=== PATIENT | male | born 1960 | race Caucasian/White ===

== ENCOUNTER 2024-06-15 06:42 | Observation (INO) ==
[2024-06-15 07:18] LABS: Basophils # (auto) 0.03 K/uL (0.00-0.20); Basophils % (auto) 0.3 %; Eosinophils # (auto) 0.08 K/uL (0.00-0.50); Eosinophils % (auto) 0.9 %; Immature Granulocytes # (auto) 0.07 K/uL (0.01-0.20); Immature Granulocytes % (auto) 0.8 %; Lymphocytes # (auto) 1.38 K/uL (1.20-3.40); Lymphocytes % (auto) 15.6 %; Mean Corpuscular Hemoglobin 32.7 pg (25.0-34.0); Mean Corpuscular Hgb Conc 35.4 g/dL (32.0-36.0); Mean Corpuscular Volume 92.3 fL (80.0-100.0); Mean Platelet Volume 10.2 fL (9.4-12.4); Monocytes # (auto) 0.78 K/uL (0.11-0.59); Monocytes % (auto) 8.8 %; Neutrophils # (auto) 6.51 K/uL (1.40-6.50); Neutrophils % (auto) 73.6 %; Platelet Count 129 K/uL (130-400); RDW Standard Deviation 46.7 fL (36.4-46.3); White Blood Count 8.85 K/ul (4.8-10.8)
[2024-06-15 07:29] LABS: Albumin Globulin Ratio 1.8 (0.9-2); Albumin Level 4.2 gm/dl (3.4-5.0); BUN Creatinine Ratio 18.6 (10-20); Bilirubin,Total 1.4 mg/dl (0.2-1.0); Calcium 9.4 mg/dl (8.6-10.3); Creatinine Clr Calc Pharmacy 115.1 ml/min; Globulin 2.3 gm/dl (2.5-4.0); Potassium 4.4 mmol/L (3.5-5.1); Total Protein 6.5 gm/dl (6.0-8.3)
[2024-06-15 07:35] LABS: Troponin I High Sensitivity 9.4 pg/ml (0-20)
--- NOTE | 2024-06-15 07:55 | Emergency Department Note ---
Impression & Plan Chest pain, Cardiomyopathy, CAD (coronary artery disease) ED Provider Note NAME: RUPERT [id number] DANA AGE: 63 SEX: M : 1960 ARRIVES VIA: Walk-In INFORMANT: Patient, ED PROVIDER(S): Alivia Henriquez MD CHIEF COMPLAINT: Chest pain HPI: This is a 63-year-old male with history of CAD status post CABG/stenting/pacemaker presenting for chest pain. Patient notes that he became chest pain when he woke up. He was diaphoretic with central chest pain and feeling of pressure/squeezing sensation. He has had it was noted to like a 8/10 in severity, now down to a 4/10. He also feels similar to previous times he has had CABG/stenting done in the past. He did note slight associated shortness of breath. No fever, chills, nausea or vomiting. ROS: See above HPI for pertinent positives & negatives. A total of 10 systems reviewed and were otherwise negative. PAST MEDICAL HISTORY: See Below PAST SURGICAL HISTORY: See Below FAMILY HISTORY: See Below SOCIAL HISTORY: See Below HOME MEDICATIONS: See Below ALLERGIES: See Below VITALS: See Below PHYSICAL EXAMINATION: General: resting comfortably in no acute distress Head: Normocephalic and atraumatic Eyes: Normal inspection, extraocular muscles intact Ear, nose, throat: Normal external exam Neck: Normal range of motion Respiratory: lungs clear to auscultation bilaterally Cardiovascular: Regular rate/rhythm, no murmur GI: soft, nontender, no guarding or rebound Extremities: nontender, moves all extremities Neuro: The patient awake and alert, appropriately conversive, no focal deficits, symmetric faces Skin: Warm, dry, and intact MEDICAL DECISION MAKING: This is a 63-year-old male with history of CAD status post CABG/stenting/pacemaker presenting for chest pain. Clinically well at this time but did have symptoms concerning for cardiac chest pain. Will do screening workup to help elucidate with EKG, troponin, chest x-ray. -ECG independently interpreted by me with atrially sensed, ventricularly paced rhythm at a rate of 69, prolonged AV conduction, no acute ST segment elevation consistent with for STEMI -Chest x-ray read as negative by radiology -Bloodwork is reviewed showing no significant leukocytosis, anemia, electrolyte or creatinine abnormality -Troponin is currently negative. -With patient's previous history of ACS with similar symptoms, will admit for further cardiac workup per patient has a previous CABG and stents and is high cardiac risk at this time. -Discussed care with hospitalist service for admission Differential diagnosis:- ACS, PE, angina pneumonia, pneumothorax, treatment provided: See below Independent History obtained from: [facility] Diagnostics interpreted by me: ECG: See above Cardiac Monitoring: An order was placed for continuous cardiac monitoring. The monitor shows a rate of 65 with sinus rhythm. Laboratory studies: As stated above and show below. Imaging studies: See below. Past Med/Surg History Problem List (Updated 06/15/24 @ 14:57 by Alivia Henriquez MD) Type 2 diabetes mellitus Chest pain (Acute) NSVT (nonsustained ventricular tachycardia) Cardiomyopathy (Acute) CAD (coronary artery disease) (Acute) CASH (dyspnea on exertion) Loss of consciousness ICD (implantable cardioverter-defibrillator), biventricular, in situ Social History Smoking Status: Never smoker Preferred Language: Slovenian Feels Safe at Home: Yes Allergies Allergies Allergy/AdvReac Type Severity Reaction Status Date / Time atorvastatin Allergy Verified 04/20/24 11:52 metformin Allergy Verified 04/20/24 11:52 penicillin G benzathine Allergy Verified 04/20/24 11:52 Home Meds Home Medications Medication Instructions Recorded Confirmed albuterol sulfate 90 mcg/actuation 2 puff inhalation Q6H PRN 01/12/24 04/20/24 aerosol inhaler amitriptyline 100 mg tablet 100 mg PO DAILY 01/12/24 04/20/24 amitriptyline 50 mg tablet 50 mg PO DAILY 01/12/24 04/20/24 aspirin 81 mg tablet,delayed 81 mg PO DAILY 01/12/24 04/20/24 release carvedilol 6.25 mg tablet (Coreg) 6.25 mg PO BID 01/12/24 04/20/24 clopidogrel 75 mg tablet 75 mg PO DAILY 01/12/24 04/20/24 cyanocobalamin (vitamin B-12) 100 mcg IM MONTHLY 01/12/24 04/20/24 1,000 mcg/mL injection solution empagliflozin 10 mg tablet 10 mg PO DAILY 01/12/24 04/20/24 (Jardiance) insulin glargine-yfgn 100 unit/mL 10 unit subcut DAILY 01/12/24 04/20/24 (3 mL) subcutaneous pen (Semglee (insulin glargine-yfgn) Pen) isosorbide mononitrate 30 mg 30 mg PO DAILY 01/12/24 04/20/24 tablet,extended release 24 hr nitroglycerin 0.4 mg sublingual 0.4 mg sublingual Q5M PRN 01/12/24 04/20/24 tablet potassium chloride 10 mEq 10 meq PO DAILY 01/12/24 04/20/24 capsule,extended release sacubitril 24 mg-valsartan 26 mg 1 tab PO BID 01/12/24 04/20/24 tablet (Entresto) spironolactone 25 mg tablet 25 mg PO DAILY 01/12/24 04/20/24 amitriptyline 25 mg tablet 25 mg PO DAILY 04/20/24 04/20/24 pramoxine 1 % lotion (Sarna 1 applic topical BID 04/20/24 04/20/24 Sensitive) Results & Data (ED) Vital Signs Vital Signs - 24 hr 06/15/24 06:49 06/15/24 07:03 06/15/24 07:04 Temperature 36.6 C Temperature Source Temporal Artery Scan Pulse Rate 76 68 70 Pulse Rate from SpO2 Sensor 69 Respiratory Rate 18 13 Blood Pressure 108/69 Blood Pressure [Left Arm] Blood Pressure Mean 82 Blood Pressure Mean [Left Arm] Blood Pressure Position Sitting Pulse Oximetry 96 95 Oxygen Delivery Method Room Air Sepsis Recent Fever Within 48 Hours No Sepsis New/Unexplained Change in Mental Status N/A Sepsis Action Taken by Nursing No Action Required 06/15/24 07:24 06/15/24 07:31 06/15/24 07:31 Temperature Temperature Source Pulse Rate 67 Pulse Rate from SpO2 Sensor 68 Respiratory Rate 12 Blood Pressure Blood Pressure [Left Arm] Blood Pressure Mean Blood Pressure Mean [Left Arm] Blood Pressure Position Pulse Oximetry 93 Oxygen Delivery Method Room Air Room Air Sepsis Recent Fever Within 48 Hours Sepsis New/Unexplained Change in Mental Status Sepsis Action Taken by Nursing 06/15/24 07:33 06/15/24 07:45 06/15/24 07:57 Temperature Temperature Source Pulse Rate 66 70 69 Pulse Rate from SpO2 Sensor 66 70 66 Respiratory Rate 12 14 13 Blood Pressure Blood Pressure [Left Arm] Blood Pressure Mean Blood Pressure Mean [Left Arm] Blood Pressure Position Pulse Oximetry 93 96 97 Oxygen Delivery Method Sepsis Recent Fever Within 48 Hours Sepsis New/Unexplained Change in Mental Status Sepsis Action Taken by Nursing 06/15/24 08:00 06/15/24 08:12 06/15/24 08:42 Temperature Temperature Source Pulse Rate 68 70 63 Pulse Rate from SpO2 Sensor 67 69 63 Respiratory Rate 12 Blood Pressure Blood Pressure [Left Arm] Blood Pressure Mean Blood Pressure Mean [Left Arm] Blood Pressure Position Pulse Oximetry 96 95 95 Oxygen Delivery Method Sepsis Recent Fever Within 48 Hours Sepsis New/Unexplained Change in Mental Status Sepsis Action Taken by Nursing 06/15/24 09:09 06/15/24 09:18 06/15/24 09:18 Temperature Temperature Source Pulse Rate 71 68 Pulse Rate from SpO2 Sensor 71 69 Respiratory Rate 13 13 Blood Pressure Blood Pressure [Left Arm] 108/73 Blood Pressure Mean Blood Pressure Mean [Left Arm] 84 Blood Pressure Position Pulse Oximetry 97 97 Oxygen Delivery Method Sepsis Recent Fever Within 48 Hours Sepsis New/Unexplained Change in Mental Status Sepsis Action Taken by Nursing 06/15/24 10:00 Temperature Temperature Source Pulse Rate 62 Pulse Rate from SpO2 Sensor 63 Respiratory Rate 14 Blood Pressure Blood Pressure [Left Arm] Blood Pressure Mean Blood Pressure Mean [Left Arm] Blood Pressure Position Pulse Oximetry 98 Oxygen Delivery Method Sepsis Recent Fever Within 48 Hours Sepsis New/Unexplained Change in Mental Status Sepsis Action Taken by Nursing Laboratory Data 06/15/24 07:01 06/15/24 07:01 Lab Results 06/15/24 06/15/24 Range/Units 07:01 09:08 WBC 8.85 (4.8-10.8) K/ul RBC 5.20 (4.70-6.10) M/uL Hgb 17.0 (14.0-18.0) g/dl Hct 48.0 (42.0-52.0) % MCV 92.3 (80.0-100.0) fL MCH 32.7 (25.0-34.0) pg MCHC 35.4 (32.0-36.0) g/dL RDW Std Deviation 46.7 H (36.4-46.3) fL RDW Coeff of Jose 14.0 (11.5-14.5) % Plt Count 129 L (130-400) K/uL MPV 10.2 (9.4-12.4) fL Immature Gran % (Auto) 0.8 % Neut % (Auto) 73.6 % Lymph % (Auto) 15.6 % [place] % (Auto) 8.8 % Eos % (Auto) 0.9 % Baso % (Auto) 0.3 % Neut # (Auto) 6.51 H (1.40-6.50) K/uL Lymph # (Auto) 1.38 (1.20-3.40) K/uL [place] # (Auto) 0.78 H (0.11-0.59) K/uL Eos # (Auto) 0.08 (0.00-0.50) K/uL Baso # (Auto) 0.03 (0.00-0.20) K/uL Immature Gran # (Auto) 0.07 (0.01-0.20) K/uL Sodium 140 (136-145) mmol/L Potassium 4.4 (3.5-5.1) mmol/L Chloride 109 H (98-107) mmol/L Carbon Dioxide 24 (21-32) mmol/L Anion Gap 7 (3-11) BUN 16 (6-23) mg/dl Creatinine 0.86 (0.6-1.4) mg/dl Est Cr Clr Drug Dosing 115.1 ml/min eGFR 96.69 BUN/Creatinine Ratio 18.6 (10-20) Glucose 181 H (70-99(Fasting)) mg/dl Calcium 9.4 (8.6-10.3) mg/dl Total Bilirubin 1.4 H (0.2-1.0) mg/dl AST 11 L (13-39) U/L ALT 15 (7-52) U/L Alkaline Phosphatase 65 (34-104) U/L Troponin I High Sens 9.4 7.8 (0-20) pg/ml Total Protein 6.5 (6.0-8.3) gm/dl Albumin 4.2 (3.4-5.0) gm/dl Globulin 2.3 L (2.5-4.0) gm/dl Albumin/Globulin Ratio 1.8 (0.9-2) Lipase 22 (11-82) U/L Administered Medications Insulin Aspart (Insulin Aspart Per Unit Charge) 0 units SC ACHS SHANT Stop: 07/15/24 12:29 Last Admin: 06/15/24 14:12 Dose: 6 units Documented By: RADHA Co-signed By: SNS Discontinued Medications Nitroglycerin (Nitroglycerin Sl 0.4 Mg/Tab Tab) 0.4 mg SL NOW ONE Stop: 06/15/24 09:47 Last Admin: 06/15/24 10:13 Dose: 0.4 mg Documented By: RADHA Imaging Data Radiologist's Impression: Chest X-Ray 06/15/24 07:03 EXAM: XR chest 1V portable CLINICAL HISTORY: CHEST PAIN, [facility] TECHNIQUE: An X-ray image of the chest is obtained in AP projection. COMPARISON: No prior studies are available for comparison. FINDINGS: Pulmonary Parenchyma: Lungs are clear bilaterally. No evidence of consolidation, collapse, or focal opacities. No pulmonary nodules are identified. No evidence of pleural effusion or pleural thickening. Heart and Mediastinum: Heart size and shape are normal. No mediastinal widening or masses. No hilar or mediastinal lymphadenopathy. Dual-lead cardiac pacemaker device is seen on the left side. Median sternotomy sutures saw status post-intervention. Bony Thorax: The bony thorax appears intact without fractures or deformities. Soft Tissues: Soft tissues overlying the chest wall are unremarkable. IMPRESSION: No evidence of consolidation or pleural effusion. Electronically signed by Bina Fernandes 06-15-2024 08:25 AM Discharge Plan Visit Data Chief Complaint: Chest Pain Stated Complaint: CHEST PAIN ED Provider: Alivia Henriquez Discharge Problem: Chest pain, Cardiomyopathy, CAD (coronary artery disease) Patient Disposition: Admitted As Inpatient Discharge Instructions Interventions: ED Discharge Assessment Last Done: 06/15/24 12:03
--- NOTE | 2024-06-15 08:26 | XRay Report ---
EXAM: XR chest 1V portable CLINICAL HISTORY: CHEST PAIN, [facility] TECHNIQUE: An X-ray image of the chest is obtained in AP projection. COMPARISON: No prior studies are available for comparison. FINDINGS: Pulmonary Parenchyma: Lungs are clear bilaterally. No evidence of consolidation, collapse, or focal opacities. No pulmonary nodules are identified. No evidence of pleural effusion or pleural thickening. Heart and Mediastinum: Heart size and shape are normal. No mediastinal widening or masses. No hilar or mediastinal lymphadenopathy. Dual-lead cardiac pacemaker device is seen on the left side. Median sternotomy sutures saw status post-intervention. Bony Thorax: The bony thorax appears intact without fractures or deformities. Soft Tissues: Soft tissues overlying the chest wall are unremarkable. IMPRESSION: No evidence of consolidation or pleural effusion. Electronically signed by Bina Fernandes 06-15-2024 08:25 AM
--- NOTE | 2024-06-15 09:20 | History & Physical Report ---
Date of Service June 15, 2024 Assessment & Plan (1) Chest pain: Plan: Chest pain starting at 0400 which caused him to wake from sleep, symptoms are without radiation, but he did have associated symptoms shortness of breath. H/o cardiac disease w/ prior CABG, stents, and ICD in place. - Admit - EKG on admission showing rate ~ 70bpm no signs ischemia per my read; EKG as needed for chest pain - Troponin 9.4, repeat 7.8 - CBC grossly WNL with exception of platelets 129 and RDW 46.7; CMP chloride 109, total bilirubin 1.4, AST 11, globulin 2.3 - CXR no evidence of consolidation or pleural effusion; dual-lead cardiac pacer device on left side - Echo most recently obtained in September 2023 revealing EF 55 to 60%; pending repeat echo - Lipid panel in am; atorvastatin listed as an allergy - NTG 0.4 mg SL prn for CP - Cardiology consulted Appreciate cardiology input + recs (2) CAD (coronary artery disease): Plan: Follows with air conditioning mechanic Dr. Rodriguez, most recent visit 04/20 - H/o bypass surgery in 1997 (LAD, RCA and obtuse marginal), PCI in 2021 to the RCA, then saphenous vein graft in the same area September 2022. Biventricular ICD placed November 2021. - On Plavix and aspirin daily; continue (3) Cardiomyopathy: Plan: Documented h/o of a nonischemic cardiomyopathy, but was described as ischemic cardiomyopathy per most recent cardiology note - EF responded to biventricular pacing as well as medical therapy - Currently on carvedilol, Entresto, Jardiance, and isosorbide mononitrate - Pending repeat echo (4) ICD (implantable cardioverter-defibrillator), biventricular, in situ: Plan: Placed November 30, 2021 - [place] leads (5) Type 2 diabetes mellitus: Plan: Per patient - On Empagliflozin 10mg; hold while inpatient - Pending A1c - SSI with target BSG range 110-140mg/dL, CF 20, carb ratio 10 - On Glargine 10 U daily - BSG ACHS if eating - Adjust regimen as needed - Pharm consult placed Plan Dispo: Admit VTE prophylaxis: SCDs Code: Full Admission and Anticipated Discharge Date Admission Date: 06/15/2024 History of Present Illness Chief Complaint: Chest pain Primary Care Provider: JACOBY Flanagan 63-year-old male presenting for chest pain starting the day of arrival. ED c ourse: CBC grossly WNL with exception of platelet 129, RDW 46.7; CMP chloride 109, glucose 118, total bilirubin 1.4, AST 11, globulin 2.3; initial troponin 9.4 repeat pending; CXR revealing no evidence of consolidation or pleural effusion, dual-lead cardiac pacemaker device on left side.; EKG atrial sensed ventricular paced rhythm, rate around 70 bpm.; Vital stable. Patient is a 63-year-old male prisoner with PMHx CAD, cardiomyopathy, and ICD placement presenting for chest pain. Began around 0400 daily arrival, causing him to wake from sleep. States that it was an intense central chest without radiation to arm, back, or jaw. Rated the pain an 8 out of 10 on the pain scale. Did not have any diaphoresis during episode, and additionally denies episode of dizziness or syncope at the time of chest pain. Did have mild shortness of breath, however this is normal for the patient to have shortness of breath that is not triggered by any specific event. Took 1 nitroglycerin when the pain started. Current pain is rated 4/10 on the pain scale, patient denying current shortness of breath, palpitations, abdominal pain, N/V. States that he normally has chest pain that is not triggered by any specific events, normally awakening him from sleep and lasting approximately 1 hour. However, today the pain was so severe that he went to [facility] to seek attention. States on the walk he had to stop multiple times to catch his breath. Denying fever/chills, diarrhea/constipation, numbness or tingling, dysuria, or LUTS. Normal episodes of chest pain completely relieved with nitroglycerin, however, today nitroglycerin only minimized the pain but did not completely relieve it. Only other symptoms that are currently by the patient include that he has dizziness when he goes from sitting/laying to standing, sometimes causing him to syncopize. This event did not occur this morning when the chest pain started. Did take all a.m. medications with exception of Plavix. Please see Dr. Copeland's attestation for adjustments/additions to treatment plan. Allergies Allergy/AdvReac Type Severity Reaction Status Date / Time atorvastatin Allergy Verified 04/20/24 11:52 metformin Allergy Verified 04/20/24 11:52 penicillin G benzathine Allergy Verified 04/20/24 11:52 Home Medications Medication Instructions Recorded Confirmed Type albuterol sulfate 90 mcg/actuation 2 puff inhalation Q6H PRN 01/12/24 04/20/24 History aerosol inhaler amitriptyline 100 mg tablet 100 mg PO DAILY 01/12/24 04/20/24 History amitriptyline 50 mg tablet 50 mg PO DAILY 01/12/24 04/20/24 History aspirin 81 mg tablet,delayed 81 mg PO DAILY 01/12/24 04/20/24 History release carvedilol 6.25 mg tablet (Coreg) 6.25 mg PO BID 01/12/24 04/20/24 History clopidogrel 75 mg tablet 75 mg PO DAILY 01/12/24 04/20/24 History cyanocobalamin (vitamin B-12) 100 mcg IM MONTHLY 01/12/24 04/20/24 History 1,000 mcg/mL injection solution empagliflozin 10 mg tablet 10 mg PO DAILY 01/12/24 04/20/24 History (Jardiance) insulin glargine-yfgn 100 unit/mL 10 unit subcut DAILY 01/12/24 04/20/24 History (3 mL) subcutaneous pen (Semglee (insulin glargine-yfgn) Pen) isosorbide mononitrate 30 mg 30 mg PO DAILY 01/12/24 04/20/24 History tablet,extended release 24 hr nitroglycerin 0.4 mg sublingual 0.4 mg sublingual Q5M PRN 01/12/24 04/20/24 History tablet potassium chloride 10 mEq 10 meq PO DAILY 01/12/24 04/20/24 History capsule,extended release sacubitril 24 mg-valsartan 26 mg 1 tab PO BID 01/12/24 04/20/24 History tablet (Entresto) spironolactone 25 mg tablet 25 mg PO DAILY 01/12/24 04/20/24 History amitriptyline 25 mg tablet 25 mg PO DAILY 04/20/24 04/20/24 History pramoxine 1 % lotion (Sarna 1 applic topical BID 04/20/24 04/20/24 History Sensitive) Past Med/Surg History Problem List (Updated 06/15/24 @ 10:07 by Triny Jernigan PA-C) Type 2 diabetes mellitus Chest pain NSVT (nonsustained ventricular tachycardia) Cardiomyopathy CAD (coronary artery disease) CASH (dyspnea on exertion) Loss of consciousness ICD (implantable cardioverter-defibrillator), biventricular, in situ Social History Smoking Status: Never smoker Preferred Language: Turkmen Feels Safe at Home: Yes Review of Systems Review of Systems: All systems reviewed & are unremarkable except as noted in Subjective Physical Exam Physical Exam: General: No acute distress Skin: Warm and dry, without rashes or lesions Head: Normocephalic, atraumatic Eyes: PERRL, conjunctivae clear, sclera non-icteric; EOM intact ENT: External ear and ear canal without swelling; nose atraumatic; poor dentition, tongue normal appearance, pharynx normal without tonsillar swelling or exudate Neck: Supple, no LAD; no JVD Cardio: RRR, no M/G/R, S1 and S2 normal; ICD placed L chest Resp: Normal respiratory effort; No respiratory distress, Lungs CTA in all lobes bilaterally, no wheezes, rales, or rhonchi Abdomen: Soft, symmetric, nontender; no distention; No masses or hepatosplenomegaly MSK: No deformities; pulses palpable and equal; trace pitting edema to mid-rodriguez. Neuro: Awake, alert; Sensation intact bilaterally; CN intact Psych: Appropriate mood and affect 2 guards present in room at time of visi t. Results & Data Results & Data Vital Signs (Past 12 Hours) Vital Signs Temp Pulse Resp BP Pulse Ox O2 Del Method 06/15/24 08:12 70 95 06/15/24 08:00 68 12 96 06/15/24 07:57 69 13 97 06/15/24 07:45 70 14 96 06/15/24 07:33 66 12 93 06/15/24 07:31 Room Air 06/15/24 07:31 Room Air 06/15/24 07:24 67 12 93 06/15/24 07:04 70 06/15/24 07:03 68 13 95 06/15/24 06:49 36.6 C 76 18 108/69 96 Room Air Laboratory Results 06/15/24 07:01 WBC 8.85 RBC 5.20 Hgb 17.0 Hct 48.0 MCV 92.3 MCH 32.7 MCHC 35.4 RDW Std Deviation 46.7 H RDW Coeff of Jose 14.0 Plt Count 129 L MPV 10.2 Immature Gran % (Auto) 0.8 Neut % (Auto) 73.6 Lymph % (Auto) 15.6 [place] % (Auto) 8.8 Eos % (Auto) 0.9 Baso % (Auto) 0.3 Neut # (Auto) 6.51 H Lymph # (Auto) 1.38 [place] # (Auto) 0.78 H Eos # (Auto) 0.08 Baso # (Auto) 0.03 Immature Gran # (Auto) 0.07 Sodium 140 Potassium 4.4 Chloride 109 H Carbon Dioxide 24 Anion Gap 7 BUN 16 Creatinine 0.86 Est Cr Clr Drug Dosing 115.1 eGFR 96.69 BUN/Creatinine Ratio 18.6 Glucose 181 H Calcium 9.4 Total Bilirubin 1.4 H AST 11 L ALT 15 Alkaline Phosphatase 65 Troponin I High Sens 9.4 Total Protein 6.5 Albumin 4.2 Globulin 2.3 L Albumin/Globulin Ratio 1.8 Lipase 22 Diagnostic Findings Chest X-Ray 06/15/24 07:03 EXAM: XR chest 1V portable CLINICAL HISTORY: CHEST PAIN, [facility] TECHNIQUE: An X-ray image of the chest is obtained in AP projection. COMPARISON: No prior studies are available for comparison. FINDINGS: Pulmonary Parenchyma: Lungs are clear bilaterally. No evidence of consolidation, collapse, or focal opacities. No pulmonary nodules are identified. No evidence of pleural effusion or pleural thickening. Heart and Mediastinum: Heart size and shape are normal. No mediastinal widening or masses. No hilar or mediastinal lymphadenopathy. Dual-lead cardiac pacemaker device is seen on the left side. Median sternotomy sutures saw status post-intervention. Bony Thorax: The bony thorax appears intact without fractures or deformities. Soft Tissues: Soft tissues overlying the chest wall are unremarkable. IMPRESSION: No evidence of consolidation or pleural effusion. Electronically signed by Bina Fernandes 06-15-2024 08:25 AM Code Status & VTE Plan Code Status Full Supervising Physician Co-Signing Physician Notes The patient was not seen by me. The chart was reviewed. Case discussed with ROCK Meza. Agree with assessment and plan PG Care Time/CCT Total # of Minutes Spent Total Time Spent with Patient: Total time spent is greater than 50% in coordination of care (as documented) at patient's floor/unit and/or counseling patient: Coding Level of Care Code 74445 INT INP/OBS CARE 2/55MIN Diagnoses Chest pain R07.9 CAD (coronary artery disease) I25.10 Cardiomyopathy I42.9 ICD (implantable cardioverter-defibrillator), biventricular, in situ Z95.810 Type 2 diabetes mellitus E11.9 Time Spent (min) 70
[2024-06-15] MEDS: NITROGLYCERIN SL 0.4 MG/TAB TAB SL ONE (10:13)
[2024-06-15] MEDS ORDERED: GLUCOSE 10 TAB/TUBE PO PRN (12:04)
[2024-06-15] MEDS ORDERED: GLUCOSE 40% GEL 15 GM TUBE PO PRN (12:04)
[2024-06-15] MEDS ORDERED: GLUCAGON FOR INJ 1 MG VIAL SQ PRN (12:04)
[2024-06-15] MEDS ORDERED: PHARMACY GLYCEMIC MGMT CONSULT PRN (12:04)
[2024-06-15] MEDS ORDERED: ALUMINUM/MAGNESIUM SUSP 30 ML UDC PO PRN (12:04)
[2024-06-15] MEDS ORDERED: CARBOHYDRATES FOR HYPOGLYCEMIA PO PRN (12:04)
[2024-06-15] MEDS ORDERED: DEXTROSE 50% 50 ML SYRINGE IV PRN (12:04)
--- NOTE | 2024-06-15 13:44 | Pharmacy Report ---
Pharmacy Glycemic Short Note 2 - Date of Service June 15, 2024 - Glycemic Short BSG Results (Last 24 hours): 06/15/24 06/15/24 07:01 13:33 Glucose 181 H POC Glucose 135 H OUTPATIENT ANTIDIABETIC REGIMEN: * Semglee 10 units SC daily * Empagliflozin 10 mg PO daily HbA1c: ordered for 06/16/24 ASSESSMENT: * RM is a 63 year old male who presents from half-way w/ chest pain * PMH includes T2DM, CAD, cardiomyopathy, and hx of ICD placement * Patient reportedly received all morning meds prior to presentation (this would include Jardiance and Semglee) * Will hold off on any further basal insulin today and reassess in AM PLAN FOR INPATIENT GLYCEMIC CONTROL: * Hold outpatient oral diabetes medications * Basal insulin * Reportedly received 10 units of Semglee at half-way * Reassess in AM * Bolus insulin * NovoLog per scale ACHS or Q6hrs while NPO * Goal Range: Low 110 mg/dL - High 140 mg/dL * Correction Factor: 25 mg/dL/unit * Nutritional / Prandial insulin per carb ratio of 1 unit per 8 grams CHO consumed
[2024-06-15] MEDS: INSULIN ASPART PER UNIT CHARGE SC SCH (14:12)
--- NOTE | 2024-06-15 15:19 | Cardiology Consultation ---
Date of Consultation June 15, 2024 Assessment & Plan (1) Chest pain: chronic CAD history with triple bypass in 1997, PCI to RCA in 2021, regrafting of RCA in 2022 per documentation - EKG from 06/15/24 AM not concerning for acute cardiac event - troponin WNL: 9.4 -> 6.8 - cxr unremarkable Nuclear Stress Test ordered as patient cannot tolerate exercise stress test Echocardiogram prior to discharge for updated study (2) CASH (dyspnea on exertion): as above - cardiac history likely contributing to recent increase in SOB and related symptoms - echocardiogram from 09/11/23 EF 55-60% Nuclear Stress Test ordered Echocardiogram prior to discharge for updated study (3) CAD (coronary artery disease): chronic, see history and #1 asst/plan - continue home cardiac medications Nuclear Stress Test, echocardiogram prior to discharge (4) Cardiomyopathy: chronic, likely non-ischemic due EF improvement by ICD pacing and medications - continue home cardiac medications Nuclear Stress test, echo prior to discharge (5) ICD (implantable cardioverter-defibrillator), biventricular, in situ: as above - ensure proper functioning History of Present Illness Reason for Consultation: chest pain, history of CAD and stents Requesting Physician: Triny Jernigan PA-C Attending Physician: Nixon Copeland MD History of Present Illness Chris is a 63yo incarcerated male with PMHx CAD s/p stent placement to LAD, RCA, and obtuse marginal arteries in 1997, PCI of RCA in 2021, and saphenous vein graft to in the same area September 10 2022. On Had biventricular ICD placed in November 2021 which has improved previous EF in addition to carvedilol, Entresto, Jardiance, and isosorbide mononitrate. Most recent echo in Sep 2023 showing EF 55-60%. Patient seen at bedside around 4pm on 06/15/24, two police officers present, pt's LUE and LLE handcuffed to bed rail. Patient endorses being woken up at 4am on 06/15/24 from chest pain that he describes as 8/10 with a tight and squeezing quality. Patient was also having shortness of breath and dizziness at this time but denied any radiation of pain, nausea, vomiting. 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 Upon arriving at [facility] ED around 7am, patient notes the pain had s ubsided to about 4/10 and having much less SOB and dizziness. Vital signs have been stable throughout time in ER, EKG not concerning for acute cardiac event, troponin max 9.4 -> 6.8, cxr unremarkable. Of note, patient endorses having increased incidence of chest pain waking him up at night, 1-2x per week for about a month. Additionally endorses worsening SOB, dizziness, and fainting when working or with increased activity. Patient denies any current pain, SOB, dizziness, lightheadedness, vision changes, nausea, vomiting, abdominal pain, numbness, or tingling. Denies trauma. Allergies Allergy/AdvReac Type Severity Reaction Status Date / Time atorvastatin Allergy Verified 04/20/24 11:52 metformin Allergy Verified 04/20/24 11:52 penicillin G benzathine Allergy Verified 04/20/24 11:52 Home Medications Medication Instructions Recorded Confirmed Type albuterol sulfate 90 mcg/actuation 2 puff inhalation Q6H PRN 01/12/24 04/20/24 History aerosol inhaler amitriptyline 100 mg tablet 100 mg PO DAILY 01/12/24 04/20/24 History amitriptyline 50 mg tablet 50 mg PO DAILY 01/12/24 04/20/24 History aspirin 81 mg tablet,delayed 81 mg PO DAILY 01/12/24 04/20/24 History release carvedilol 6.25 mg tablet (Coreg) 6.25 mg PO BID 01/12/24 04/20/24 History clopidogrel 75 mg tablet 75 mg PO DAILY 01/12/24 04/20/24 History cyanocobalamin (vitamin B-12) 100 mcg IM MONTHLY 01/12/24 04/20/24 History 1,000 mcg/mL injection solution empagliflozin 10 mg tablet 10 mg PO DAILY 01/12/24 04/20/24 History (Jardiance) insulin glargine-yfgn 100 unit/mL 10 unit subcut DAILY 01/12/24 04/20/24 History (3 mL) subcutaneous pen (Semglee (insulin glargine-yfgn) Pen) isosorbide mononitrate 30 mg 30 mg PO DAILY 01/12/24 04/20/24 History tablet,extended release 24 hr nitroglycerin 0.4 mg sublingual 0.4 mg sublingual Q5M PRN 01/12/24 04/20/24 History tablet potassium chloride 10 mEq 10 meq PO DAILY 01/12/24 04/20/24 History capsule,extended release sacubitril 24 mg-valsartan 26 mg 1 tab PO BID 01/12/24 04/20/24 History tablet (Entresto) spironolactone 25 mg tablet 25 mg PO DAILY 01/12/24 04/20/24 History amitriptyline 25 mg tablet 25 mg PO DAILY 04/20/24 04/20/24 History pramoxine 1 % lotion (Sarna 1 applic topical BID 04/20/24 04/20/24 History Sensitive) Patient History Social History Smoking Status: Never smoker Preferred Language: Irish Feels Safe at Home: Yes Review of Systems Review of Systems: per HPI Physical Exam Physical Exam: Constitutional: A&Ox4, appears stated age, not in acute distress, LUE and LLE cuffed to ER bed HEENT: NC/AT, EOM intact, PERRL Cardiovascular: regular rate and rhythm, +s1/s2, no murmurs/rubs/gallops heard on auscultation Respiratory: clear to auscultation b/l, good equal air entry b/l, no wheeze/rales/rhonchi GI: abdomen soft, +BS, nontender to palpation MSK: 5/5 strength all extremities Neuro: no facial droop, speech intact, no hearing deficits Results & Data Vital Signs (Past 12 Hours) Vital Signs Temp Pulse Resp BP BP Pulse Ox O2 Del Method 06/15/24 15:11 74 06/15/24 14:54 73 23 06/15/24 14:42 72 22 06/15/24 14:12 76 16 06/15/24 13:48 78 17 06/15/24 13:30 72 97 06/15/24 13:09 106/66 06/15/24 13:09 15 06/15/24 13:06 65 15 06/15/24 12:51 67 98 06/15/24 12:45 69 17 98 06/15/24 12:30 64 15 98 06/15/24 12:24 74 19 97 06/15/24 12:03 80 13 96 06/15/24 11:50 110/68 06/15/24 11:42 63 16 97 06/15/24 11:33 61 13 96 06/15/24 11:03 65 17 95 06/15/24 11:01 63 06/15/24 10:51 60 13 97 06/15/24 10:45 65 23 96 06/15/24 10:18 65 16 96 06/15/24 10:00 62 14 98 06/15/24 09:18 68 13 97 06/15/24 09:18 108/73 06/15/24 09:09 71 13 97 06/15/24 08:42 63 95 06/15/24 08:12 70 95 06/15/24 08:00 68 12 96 06/15/24 07:57 69 13 97 06/15/24 07:45 70 14 96 06/15/24 07:33 66 12 93 06/15/24 07:31 Room Air 06/15/24 07:31 Room Air 06/15/24 07:24 67 12 93 06/15/24 07:04 70 06/15/24 07:03 68 13 95 06/15/24 06:49 36.6 C 76 18 108/69 96 Room Air Laboratory Results Abnormal lab results 06/15/24 06/15/24 Range/Units 07:01 13:33 RDW Std Deviation 46.7 H (36.4-46.3) fL Plt Count 129 L (130-400) K/uL Neut # (Auto) 6.51 H (1.40-6.50) K/uL Placer # (Auto) 0.78 H (0.11-0.59) K/uL Chloride 109 H (98-107) mmol/L Glucose 181 H (70-99(Fasting)) mg/dl POC Glucose 135 H (70-99) mg/dl Total Bilirubin 1.4 H (0.2-1.0) mg/dl AST 11 L (13-39) U/L Globulin 2.3 L (2.5-4.0) gm/dl Diagnostic Findings EKG 06/15/24 at 6:57am: Atrial-sensed biventricular-paced rhythm Prolonged AV conduction 69 BPM Echo 2/8/24: Normal LV wall thickness Normal global wall motion EF 55-60% PG Care Time/CCT Total # of Minutes Spent Total Time Spent with Patient: Total time spent is greater than 50% in coordination of care (as documented) at patient's floor/unit and/or counseling patient: Coding Diagnoses Chest pain, unspecified type R07.9 Chest pain type: unspecified CASH (dyspnea on exertion) R06.09 Coronary artery disease involving coronary bypass graft of [place] heart with angina pectoris I25.709 Coronary Disease-Associated Artery/Lesion type: bypass graft [place] vs. transplanted heart: [place] heart Associated angina: with unspecified form of angina Cardiomyopathy, unspecified type I42.9 Cardiomyopathy type: unspecified ICD (implantable cardioverter-defibrillator), biventricular, in situ Z95.810 Resident Activity Tracking Resident Involvement: Resident Care Provided Care Provided: Adult Hospital Medicine (1) Chest pain Chest pain type: unspecified Qualified Code(s): R07.9 - Chest pain, unspecified (3) CAD (coronary artery disease) Coronary Disease-Associated Artery/Lesion type: bypass graft [place] vs. transplanted heart: [place] heart Associated angina: with unspecified form of angina Qualified Code(s): I25.709 - Atherosclerosis of coronary artery bypass graft(s), unspecified, with unspecified angina pectoris (4) Cardiomyopathy Cardiomyopathy type: unspecified Qualified Code(s): I42.9 - Cardiomyopathy, unspecified
[2024-06-15] MEDS ORDERED: Heparin IV Adult Wt-Based Standard *NO* INITIAL Bolus Protocol IV SCH (16:30)
[2024-06-15] MEDS: carvediloL 6.25 MG TAB PO SCH (17:47)
[2024-06-15] MEDS: HEPARIN SODIUM/DEXTROSE 25,000 UNITS/500 ML BAG IV SCH (18:21)
[2024-06-15] MEDS: VALSARTAN/SACUBITRIL 26/24MG TAB PO SCH (20:39)
[2024-06-16 00:58] LABS: ANTI-Xa, UFH(UnfractionatedHep 0.41 IU/ml (0.3-0.7)
[2024-06-16 07:51] LABS: Anion Gap 8 (3-11); BUN Creatinine Ratio 19.2 (10-20); Blood Urea Nitrogen 15 mg/dl (6-23); Calcium 9.1 mg/dl (8.6-10.3); Carbon Dioxide 23 mmol/L (21-32); Chloride 106 mmol/L (98-107); Cholesterol 184 mg/dl (0-200); Creatinine Clr Calc Pharmacy 126.9 ml/min; Glucose 159 mg/dl (70-99(Fasting)); HDL Cholesterol 30 mg/dl; Potassium 3.9 mmol/L (3.5-5.1); Sodium 137 mmol/L (136-145); Triglycerides 456 mg/dl (0-150)
[2024-06-16 07:58] LABS: Chol HDL Ratio 6.1 (0-5)
[2024-06-16 07:59] LABS: ANTI-Xa, UFH(UnfractionatedHep 0.44 IU/ml (0.3-0.7)
[2024-06-16 08:01] LABS: Hemoglobin 17.1 g/dl (14.0-18.0); Mean Corpuscular Hemoglobin 32.7 pg (25.0-34.0); Mean Corpuscular Hgb Conc 35.6 g/dL (32.0-36.0); Mean Corpuscular Volume 91.8 fL (80.0-100.0); Platelet Count 114 K/uL (130-400); RDW Coefficient of Variation 14.2 % (11.5-14.5); RDW Standard Deviation 46.8 fL (36.4-46.3); Red Blood Count 5.23 M/uL (4.70-6.10); White Blood Count 8.41 K/ul (4.8-10.8)
[2024-06-16 08:04] LABS: Estimated Average Glucose 143 mg/dl; Hemoglobin A1C 6.6 % (4.5-5.6)
[2024-06-16] MEDS: SPIRONOLACTONE 25 MG TAB PO SCH (08:11)
[2024-06-16] MEDS: AMITRIPTYLINE HCL 50 MG TAB PO SCH (08:12)
[2024-06-16] MEDS: ASPIRIN 81 MG ECTAB PO SCH (08:12)
[2024-06-16] MEDS: ISOSORBIDE MONO EXTENDED REL 30 MG TABCR PO SCH (08:12)
[2024-06-16] MEDS: POTASSIUM CHLORIDE 10 MEQ TABCR PO SCH (08:49)
[2024-06-16] MEDS: LANTUS PER UNIT CHARGE SQ SCH (08:49)
[2024-06-16] MEDS: CLOPIDOGREL BISULFATE 75 MG TAB PO SCH (08:53)
[2024-06-16] MEDS ORDERED: LANTUS PER UNIT CHARGE SQ SCH (09:00)
[2024-06-16] MEDS ORDERED: EMPAGLIFLOZIN 10 MG TAB PO SCH (09:00)
--- NOTE | 2024-06-16 11:50 | Cardiology Progress Note ---
Date of Service June 16, 2024 Assessment & Plan Admission and Anticipated Discharge Date Admission Date: June 15, 2024 Results & Data Vital Signs (Past 12 Hours) Vital Signs Temp Pulse Pulse Resp BP Pulse Ox O2 Del Method 06/16/24 11:05 36.3 C L 84 18 110/68 95 Room Air 06/16/24 08:52 36.5 C 70 18 122/80 95 Room Air 06/16/24 05:48 79 06/16/24 02:57 36.4 C L 77 18 118/72 95 Room Air Laboratory Results Cardiac Enzymes 06/15/24 Range/Units 11:20 Troponin I High Sens 6.8 (0-20) pg/ml Lipids 06/16/24 Range/Units 07:05 Triglycerides 456 H (0-150) mg/dl Cholesterol 184 (0-200) mg/dl HDL Cholesterol 30 mg/dl Cholesterol/HDL Ratio 6.1 H (0-5) CBC 06/16/24 Range/Units 07:05 WBC 8.41 (4.8-10.8) K/ul RBC 5.23 (4.70-6.10) M/uL Hgb 17.1 (14.0-18.0) g/dl Hct 48.0 (42.0-52.0) % Plt Count 114 L (130-400) K/uL Comprehensive Metabolic Panel 06/16/24 Range/Units 07:05 Sodium 137 (136-145) mmol/L Potassium 3.9 (3.5-5.1) mmol/L Chloride 106 (98-107) mmol/L Carbon Dioxide 23 (21-32) mmol/L BUN 15 (6-23) mg/dl Creatinine 0.78 (0.6-1.4) mg/dl Glucose 159 H (70-99(Fasting)) mg/dl Calcium 9.1 (8.6-10.3) mg/dl Intake and Output 06/15/24 06/16/24 06/16/24 22:59 06:59 14:59 Intake Total 120 / 547.8 427.8 / 547.8 241.967 / 241.967 Output Total 1600 / 2150 550 / 2150 Balance -1480 / -1602.2 -122.2 / -1602.2 241.967 / 241.967 Intake: IV 227.8 / 227.8 241.967 / 241.967 Heparin Sodium/Dextrose 25,000 227.8 / 227.8 241.967 / 241.967 units In 500 ml @ 1,700 UNITS/ HR 34 mls/hr IV .[id number] [facility] Rx #:[id number] Oral 120 / 320 200 / 320 Output: Urine 1600 / 2150 550 / 2150 Other: Weight 107.6 kg Weight Measurement Method Built in [facility] PG Care Time/CCT Total # of Minutes Spent Total Time Spent with Patient: Total time spent is greater than 50% in coordination of care (as documented) at patient's floor/unit and/or counseling patient: Coding
--- NOTE | 2024-06-16 12:45 | Hospitalist Progress Note ---
Date of Service June 16, 2024 Assessment & Plan (1) Chest pain: Plan: Resolved. Troponin series is negative. No acute EKG changes. Cardiology consultation and recommendations appreciated. He is awaiting stress testing to be done later today, June 16. This will determine his disposition. (2) CAD (coronary artery disease): Plan: Follows with surface water technician Dr. Rodriguez, most recent visit 04/20. H/o bypass surgery in 1997 (LAD, RCA and obtuse marginal), PCI in 2021 to the RCA, then saphenous vein graft in the same area September 2022. Biventricular ICD placed November 2021. Continue current medical management. Telemetry (3) Cardiomyopathy: Plan: He ischemic in nature. Continue current medical management. Appreciate cardiology consultation recommendations. Repeat cardiac echo report is pending (4) ICD (implantable cardioverter-defibrillator), biventricular, in situ: Plan: Placed November 30, 2021. (5) Type 2 diabetes mellitus: Plan: ADA diet. Sliding scale coverage as needed. Basal insulin therapy. Hemoglobin A1c is 6.6 Plan To be determined. Stress testing today, June 16 Admission and Anticipated Discharge Date Admission Date: June 15, 2024 Subjective Alert and oriented. He is somewhat frustrated from the frequency of blood test due to the heparin drip. He is awaiting his stress test later today. Hopefully this will be negative and he can be discharged Review of Systems 2 Review of Systems: Constitutionalno fever or chills ENTno blurred vision, no double vision, no epistaxis, no sore throat Respiratoryno cough, no wheezing, no shortness of breath Cardiacno palpitations, no chest pain, no syncope Maxime nausea, vomiting, diarrhea, melena, hematochezia GUno urinary retention, no urinary incontinence, no dysuria, no hematuria Musculoskeletalno joint pain, no muscle tenderness Skinno bruising, no rashes, no pruritus Neurono isolated weakness, no paresthesia, no weakness Psychno depression, no anxiety Physical Exam 2 Physical Exam: General-alert and oriented x3, no fever, no chills HEENT-head atraumatic and normocephalic, pupils equal and reactive to light, extraocular muscles intact Neck-no lymphadenopathy or thyromegaly, trachea midline Chest-clear to auscultation. No rales, wheezing or rhonchi Cardiac-regular rate and rhythm, normal S1 and S2 Abdomen-normal bowel sounds, no hepatosplenomegaly Extremities-no cyanosis, clubbing, or edema Neuro-cranial nerves II through XII intact, motor and sensory function within normal limits, strength symmetrical, no focal deficits Psych-normal affect, normal mood Results & Data Results & Data Vital Signs (Past 12 Hours) Vital Signs Temp Pulse Pulse Resp BP Pulse Ox O2 Del Method 06/16/24 12:31 Room Air 06/16/24 11:05 36.3 C L 84 18 110/68 95 Room Air 06/16/24 08:52 36.5 C 70 18 122/80 95 Room Air 06/16/24 05:48 79 06/16/24 02:57 36.4 C L 77 18 118/72 95 Room Air Laboratory Results 06/16/24 07:05 06/16/24 07:05 PG Care Time/CCT Total # of Minutes Spent Total Time Spent with Patient: Total time spent is greater than 50% in coordination of care (as documented) at patient's floor/unit and/or counseling patient: Coding Level of Care Code 23121 SUB INP/OBS CARE 2/35MIN Diagnoses Chest pain, unspecified type R07.9 Chest pain type: unspecified Coronary artery disease involving coronary bypass graft of [place] heart with angina pectoris I25.709 Associated angina: with unspecified form of angina Coronary Disease-Associated Artery/Lesion type: bypass graft [place] vs. transplanted heart: [place] heart Cardiomyopathy, unspecified type I42.9 Cardiomyopathy type: unspecified ICD (implantable cardioverter-defibrillator), biventricular, in situ Z95.810 Type 2 diabetes mellitus E11.9 (1) Chest pain Chest pain type: unspecified Qualified Code(s): R07.9 - Chest pain, unspecified (2) CAD (coronary artery disease) Associated angina: with unspecified form of angina Coronary Disease- Associated Artery/Lesion type: bypass graft [place] vs. transplanted heart: n ative heart Qualified Code(s): I25.709 - Atherosclerosis of coronary artery bypass graft(s), unspecified, with unspecified angina pectoris (3) Cardiomyopathy Cardiomyopathy type: unspecified Qualified Code(s): I42.9 - Cardiomyopathy, unspecified
[2024-06-16] MEDS: REGADENOSON 0.4 MG/5 ML SYR IV ONE (13:00)
--- NOTE | 2024-06-16 16:59 | XCELERA ---
[id number]
[2024-06-16] MEDS ORDERED: MELATONIN 3 MG TAB PO PRN (20:27)
[2024-06-16 23:25] VITALS: RESP 18
[2024-06-17 06:50] LABS: ANTI-Xa, UFH(UnfractionatedHep 0.49 IU/ml (0.3-0.7)
--- NOTE | 2024-06-17 11:35 | Hospitalist Progress Note ---
Date of Service June 17, 2024 Assessment & Plan (1) Chest pain: Plan: Resolved. Possibly unstable angina. Troponin series is negative. No acute EKG changes. Cardiology consultation and recommendations appreciated. He is awaiting stress testing to be done later today, June 17. This will determine his disposition. It could not be completed yesterday, June 16, because he drank some coffee in the morning. (2) CAD (coronary artery disease): Plan: Follows with project officer Dr. Rodriguez, most recent visit 04/20. H/o bypass surgery in 1997 (LAD, RCA and obtuse marginal), PCI in 2021 to the RCA, then saphenous vein graft in the same area September 2022. Biventricular ICD placed November 2021. Continue current medical management. Telemetry (3) Cardiomyopathy: Plan: ischemic in nature. Continue current medical management. Appreciate cardiology consultation recommendations. Cardiac echo report is noted. It shows moderate LVH with ejection fraction around 45%. (4) ICD (implantable cardioverter-defibrillator), biventricular, in situ: Plan: Placed November 30, 2021. (5) Type 2 diabetes mellitus: Plan: ADA diet. Sliding scale coverage as needed. Basal insulin therapy. Hemoglobin A1c is 6.6 Plan Hopeful discharge back to [facility] today, June 17 Admission and Anticipated Discharge Date Admission Date: June 15, 2024 Subjective The patient is none too happy about still being hospitalized. He remains on a heparin drip. He denies chest pain. He will undergo stress testing with nuclear scans today, June 18. He has not consumed any coffee this morning to prevent stress testing and imaging from proceeding. Hopefully he will be able to return to [facility] later today, June 18 Review of Systems 2 Review of Systems: Constitutionalno fever or chills ENTno blurred vision, no double vision, no epistaxis, no sore throat Respiratoryno cough, no wheezing, no shortness of breath Cardiacno palpitations, no chest pain, no syncope Maxime nausea, vomiting, diarrhea, melena, hematochezia GUno urinary retention, no urinary incontinence, no dysuria, no hematuria Musculoskeletalno joint pain, no muscle tenderness Skinno bruising, no rashes, no pruritus Neurono isolated weakness, no paresthesia, no weakness Psychno depression, no anxiety Physical Exam 2 Physical Exam: General-alert and oriented x3, no fever, no chills HEENT-head atraumatic and normocephalic, pupils equal and reactive to light, extraocular muscles intact Neck-no lymphadenopathy or thyromegaly, trachea midline Chest-clear to auscultation. No rales, wheezing or rhonchi Cardiac-regular rate and rhythm, normal S1 and S2 Abdomen-normal bowel sounds, no hepatosplenomegaly Extremities-no cyanosis, clubbing, or edema Neuro-cranial nerves II through XII intact, motor and sensory function within normal limits, strength symmetrical, no focal deficits Psych-normal affect, normal mood Results & Data Results & Data Vital Signs (Past 12 Hours) Vital Signs Temp Pulse Resp BP Pulse Ox O2 Del Method 06/17/24 08:00 36.5 C 77 18 114/77 92 Room Air 06/17/24 03:39 36.5 C 67 18 128/75 97 Room Air Laboratory Results 06/16/24 07:05 06/16/24 07:05 PG Care Time/CCT Total # of Minutes Spent Total Time Spent with Patient: Total time spent is greater than 50% in coordination of care (as documented) at patient's floor/unit and/or counseling patient: Coding Level of Care Code 08469 SUB INP/OBS CARE 2/35MIN Diagnoses Chest pain, unspecified type R07.9 Chest pain type: unspecified Coronary artery disease involving coronary bypass graft of [place] heart with angina pectoris I25.709 Associated angina: with unspecified form of angina Coronary Disease-Associated Artery/Lesion type: bypass graft [place] vs. transplanted heart: [place] heart Cardiomyopathy, unspecified type I42.9 Cardiomyopathy type: unspecified ICD (implantable cardioverter-defibrillator), biventricular, in situ Z95.810 Type 2 diabetes mellitus E11.9 (1) Chest pain Chest pain type: unspecified Qualified Code(s): R07.9 - Chest pain, unspecified (2) CAD (coronary artery disease) Associated angina: with unspecified form of angina Coronary Disease- Associated Artery/Lesion type: bypass graft [place] vs. transplanted heart: n ative heart Qualified Code(s): I25.709 - Atherosclerosis of coronary artery bypass graft(s), unspecified, with unspecified angina pectoris (3) Cardiomyopathy Cardiomyopathy type: unspecified Qualified Code(s): I42.9 - Cardiomyopathy, unspecified
--- NOTE | 2024-06-17 12:29 | Myocardial Perfusion Study ---
Date of Service June 17, 2024 Myocardial Perfusion Study [facility] Myocardial Perfusion Study Report LEXISCAN STRESS MYOCARDIAL PERFUSION IMAGING STUDY Indication: Chest pain Brief description: Rest portion-11:26 AM the patient was injected with 10 mCi of technetium 99m Cardiolite IV. 1 hour following the injection, myocardial perfusion imaging was performed in multiple projections. This was a 2-day study so the stress portion was performed on the second day. Stress portion-baseline heart rate, blood pressure, and EKG were obtained. The same parameters were monitored for 3 minutes of infusion and 3 minutes recovery. They were intermittently recorded. The patient was infused with 0.4 mg Lexiscan IV followed immediately by injection of 20.7 mCi of technetium 99m Cardiolite IV. 30 minutes following injection, myocardial perfusion imaging was performed in multiple projections similar to those used for the rest portion. There was no chest pain reported with infusion. Hemodynamic and electrocardiographic findings: 1. Resting heart rate was 93 bpm and edu to a maximum of 98 bpm with Lexiscan infusion. 2. Resting blood pressure was 89/72 mmHg and edu to a maximum of 109/70 mmHg with Lexiscan infusion. 3. Baseline EKG demonstrated sinus rhythm with first-degree AV block, possible paced ventricular rhythm, and evidence of prior septal and lateral infarction. There were no diagnostic ST segment or T wave changes with Lexiscan infusion. No Lexiscan induced arrhythmia. Myocardial perfusion imaging findings: 1. Raw data analysis demonstrates obesity, increased GI uptake, and this appears to be an adequate study for interpretation. 2. Gated myocardial perfusion imaging demonstrates borderline dilated left ventricle, global hypokinesis with the exception of the lateral myocardial segments which are normal. The EF is reduced and calculated at 42%. 3. There is a medium to large in size (13% of myocardium), mild to moderate intensity, almost entirely fixed MPI defect involving the mid to distal anterior, inferior, and inferoseptal myocardium. The only reversibility is seen at the apex. These findings are consistent with prior multi territory infarction with mild abhinav-infarct ischemia. Almost certainly there is some contribution of artifact. Summary: 1. This study is significantly abnormal. However, it is low risk for myocardial ischemia. There are no prior stress test for comparison. The findings would be consistent with his known multivessel coronary disease and bypass grafting which was recently evaluated by cardiac catheterization in 2022. This includes a chronic total occlusion of the LAD, chronic total occlusion of the RCA, chronic total occlusion of the SVG to diagonal, and patent radial to LAD, circumflex stent which is patent, and SVG to the PDA which is patent. [facility] Myocardial perfusion code Indication for Procedure (1) Chest pain: Procedure Code Procedure 1: Myocardial Perfusion Codes: 90220 Cardiovascular Stress Test, multiple Procedure 2: Myocardial Perfusion Codes: 97490 Cardiovascular Stress Test, supervision only Procedure 3: Myocardial Perfusion Codes: 47476 Cardiovascular Stress Test, interpretation and report
--- NOTE | 2024-06-17 12:39 | Discharge Summary ---
Discharge Summary Date of Service June 17, 2024 Principal Dx & Hospital Course #1 = Principal Diagnosis (1) Chest pain: Resolved. Possibly unstable angina. Troponin series is negative. No acute EKG changes. Cardiology consultation and recommendations appreciated. Stress testing was completed with nuclear scans. Cardiology says there is some reversible apical ischemia which is to be medically managed. He will be discharged back to the [facility] today, June 18. I have made 3 separate phone calls to the [facility] and have not been able to reach their doctor. I will notify the armed guards in the room of the situation. (2) CAD (coronary artery disease): Follows with recruiting specialist Dr. Rodriguez, most recent visit 04/20. H/o bypass surgery in 1997 (LAD, RCA and obtuse marginal), PCI in 2021 to the RCA, then saphenous vein graft in the same area September 2022. Biventricular ICD placed November 2021. Continue current medical management. Telemetry (3) Cardiomyopathy: ischemic in nature. Continue current medical management. Appreciate cardiology consultation recommendations. Cardiac echo report is noted. It shows moderate LVH with ejection fraction around 45%. (4) ICD (implantable cardioverter-defibrillator), biventricular, in situ: Placed November 30, 2021. (5) Type 2 diabetes mellitus: ADA diet. Sliding scale coverage as needed. Basal insulin therapy. Hemoglobin A1c is 6.6 Plan discharge back to [facility] today, June 17 Admission HPI Per Admitting Provider 63-year-old male presenting for chest pain starting the day of arrival. ED course: CBC grossly WNL with exception of platelet 129, RDW 46.7; CMP chloride 109, glucose 118, total bilirubin 1.4, AST 11, globulin 2.3; initial troponin 9.4 repeat pending; CXR revealing no evidence of consolidation or pleural e ffusion, dual-lead cardiac pacemaker device on left side.; EKG atrial sensed ventricular paced rhythm, rate around 70 bpm.; Vital stable. Patient is a 63-year-old male prisoner with PMHx CAD, cardiomyopathy, and ICD placement presenting for chest pain. Began around 0400 daily arrival, causing him to wake from sleep. States that it was an intense central chest without radiation to arm, back, or jaw. Rated the pain an 8 out of 10 on the pain scale. Did not have any diaphoresis during episode, and additionally denies episode of dizziness or syncope at the time of chest pain. Did have mild shortness of breath, however this is normal for the patient to have shortness of breath that is not triggered by any specific event. Took 1 nitroglycerin when the pain started. Current pain is rated 4/10 on the pain scale, patient denying current shortness of breath, palpitations, abdominal pain, N/V. States that he normally has chest pain that is not triggered by any specific events, normally awakening him from sleep and lasting approximately 1 hour. However, today the pain was so severe that he went to the medical center [facility] to seek attention. States on the walk he had to stop multiple times to catch his breath. Denying fever/chills, diarrhea/constipation, numbness or tingling, dysuria, or LUTS. Normal episodes of chest pain completely relieved with nitroglycerin, however, today nitroglycerin only minimized the pain but did not completely relieve it. Only other symptoms that are currently by the patient include that he has dizziness when he goes from sitting/laying to standing, sometimes causing him to syncopize. This event did not occur this morning when the chest pain started. Did take all a.m. medications with exception of Plavix. Please see Dr. Copeland's attestation for adjustments/additions to treatment plan. Discharge Exam General-alert and oriented x3, no fever, no chills HEENT-head atraumatic and normocephalic, pupils equal and reactive to light, extraocular muscles intact Neck-no lymphadenopathy or thyromegaly, trachea midline Chest-clear to auscultation. No rales, wheezing or rhonchi Cardiac-regular rate and rhythm, normal S1 and S2 Abdomen-normal bowel sounds, no hepatosplenomegaly Extremities-no cyanosis, clubbing, or edema Neuro-cranial nerves II through XII intact, motor and sensory function within normal limits, strength symmetrical, no focal deficits Psych-normal affect, normal mood Discharge Plan Discharge Items [facility] Reason For Visit: CHEST PAIN Discharge Diagnosis: Angina pectoris Activity: Resume your previous activity Non-emergency contact: Primary Care Provider Call non-emergency contact if: your symptoms worsen Follow-up/Referrals: Panchito DOZIER [Primary Care Provider] - Diet: Carb Consistent or DM2 and Heart Healthy Addtl Attending Provider Instructions: All medications remain the same. Use sublingual nitroglycerin as directed for any recurrent chest discomfort Pending Studies at Discharge: No Skilled Items Patient informed of condition?: Yes DNR: No Discharge Level of Care: Other Communicable Disease: No Discharge Prognosis: Stable Lines: None Urinary Catheter: No Medications and DC Order Prescriptions: Continued amitriptyline 100 mg tablet 100 mg PO DAILY amitriptyline 50 mg tablet 50 mg PO DAILY clopidogrel 75 mg tablet 75 mg PO DAILY Entresto 24-26 mg tablet 1 tab PO BID insulin glargine-yfgn [Semglee(insulin glarg-yfgn)Pen] 100 unit/mL (3 mL) insulin pen 10 unit subcut DAILY cyanocobalamin (vitamin B-12) 1,000 mcg/mL solution 100 mcg IM MONTHLY nitroglycerin 0.4 mg tablet, sublingual 0.4 mg sublingual Q5M PRN Rx Instructions: do not exceed 3 doses per episode albuterol sulfate 90 mcg/actuation HFA aerosol inhaler 2 puff inhalation Q6H PRN aspirin 81 mg tablet,delayed release (DR/EC) 81 mg PO DAILY carvedilol [Coreg] 6.25 mg tablet 6.25 mg PO BID Rx Instructions: must administer with a meal/food potassium chloride 10 mEq capsule, extended release 10 meq PO DAILY isosorbide mononitrate 30 mg tablet extended release 24 hr 30 mg PO DAILY spironolactone 25 mg tablet 25 mg PO DAILY Jardiance 10 mg tablet 10 mg PO DAILY amitriptyline 25 mg tablet 25 mg PO DAILY pramoxine [Sarna Sensitive] 1 % lotion 1 applic topical BID Krames/Other Patient Handouts: Managing Type 2 Diabetes Admission Data Admit Date/Time: 06/15/24 10:10 Attending Provider: Nixon Copeland Admit Provider: Nixon Copeland Primary Care Provider: Panchito DOZIER Other Providers: Nixon Copeland; Jose Luis Lundy; Raudel José; Salomón Gandhi; Ronny Rice; Tariq Rodriguez; Logan Moses Jr; Augustin Miller; Mary Foster; Yoli Looney; Alejandro Bonilla; Alejandro Canseco; Nixon Haro; Cate Craig; Chico Villatoro; Nkechi Davison; Geovanni Berry; Chico Barbosa; Alin Dumont; Maury Delarosa Hospital Stay Data Consultations 06/15/24 09:23 ED Decision to Admit Stat 06/15/24 12:04 Consult Cardiology Routine Pending Results Patient Have Any Pending Studies at Discharge: No Discharge Instructions Given to Patient (Per Discharging Provider) All medications remain the same. Use sublingual nitroglycerin as directed for any recurrent chest discomfort Total Time Total Time Spent Total Time Spent (In Minutes): 50 minutes Coding Level of Care Code 52801 INP/OBS DISCH >30 MIN Diagnoses Chest pain, unspecified type R07.9 Chest pain type: unspecified Coronary artery disease involving coronary bypass graft of [place] heart with angina pectoris I25.709 Associated angina: with unspecified form of angina Coronary Disease-Associated Artery/Lesion type: bypass graft [place] vs. transplanted heart: [place] heart Cardiomyopathy, unspecified type I42.9 Cardiomyopathy type: unspecified ICD (implantable cardioverter-defibrillator), biventricular, in situ Z95.810 Type 2 diabetes mellitus E11.9
--- NOTE | 2024-06-17 13:59 | Cardiology Progress Note ---
Date of Service June 17, 2024 Assessment & Plan (1) Chest pain: (2) Ischemic cardiomyopathy: (3) S/P CABG (coronary artery bypass graft): (4) ICD (implantable cardioverter-defibrillator), biventricular, in situ: Plan 63-year-old man status post CABG with chest pain which may have been unstable angina but which subsequently resolved. Nuclear imaging shows prior areas of limited infarction with minimal abhinav- infarct ischemia, recommend continue medical management. With borderline low BP, would recommend reducing carvedilol from 6.25 mg to 3.125 mg twice daily. Continue Entresto and spironolactone for cardiomyopathy. Continue aspirin and clopidogrel. Continue isosorbide mononitrate for symptomatic purposes. Okay for hospital discharge. Admission and Anticipated Discharge Date Admission Date: June 15, 2024 Subjective No further chest pain. Did note transient lightheadedness during adenosine nuclear imaging study, had mild hypotension at the time (90/65 mmHg BP). Nuclear imaging showed multiple limited areas of infarction with minimal abhinav- infarct ischemia. Calculated EF 42%. Physical Exam Physical Exam: No distress. BP currently normotensive. Pulse 78 bpm and regular. Respirations 18 unlabored. Skin: no ecchymoses or generalized lesions. HEENT: unremarkable. Neck: JVP at the clavicle at 90 degrees, no carotid bruits. Lungs: clear. Cardiac: regular rhythm, normal S1-2, no murmur. Abdomen: benign. Extremities: no edema, pulses intact. Neurologic: normal affect and conversation, nonfocal. Results & Data Vital Signs (Past 12 Hours) Vital Signs Temp Pulse Pulse Resp BP Pulse Ox O2 Del Method 06/17/24 12:52 97.7 F 79 77 18 114/77 92 06/17/24 08:00 97.7 F 77 18 114/77 92 Room Air 06/17/24 03:39 97.7 F 67 18 128/75 97 Room Air Laboratory Results Normal electrolytes, BUN 15, creatinine 0.78. Diagnostic Findings Echocardiogram 06/15/2024 showed EF 45 to 50% with septal thickening suggesting prior septal infarct. PG Care Time/CCT Total # of Minutes Spent Total Time Spent with Patient: Total time spent is greater than 50% in coordination of care (as documented) at patient's floor/unit and/or counseling patient: Coding Level of Care Code 26136 SUB INP/OBS CARE 2/35MIN Diagnoses Chest pain, unspecified type R07.9 Chest pain type: unspecified Ischemic cardiomyopathy I25.5 S/P CABG (coronary artery bypass graft) Z95.1 ICD (implantable cardioverter-defibrillator), biventricular, in situ Z95.810 (1) Chest pain Chest pain type: unspecified Qualified Code(s): R07.9 - Chest pain, unspecified
[2024-06-17 14:26] VITALS: BP 109/68; PULSE 69; TEMP 97.3; O2SAT 96
--- NOTE | 2024-06-17 16:13 | Electrocardiogram Report ---
Test Reason : Blood Pressure : */* mmHG Vent. Rate : 69 BPM Atrial Rate : 69 BPM P-R Int : 236 ms QRS Dur : 128 ms QT Int : 424 ms P-R-T Axes : 100 125 -3 degrees QTcB Int : 454 ms Atrial-sensed ventricular-paced rhythm with prolonged AV conduction Abnormal ECG No previous ECGs available Confirmed by Raudel José ([id number]) on 06/17/2024 4:13:30 PM Referred By: Panchito DOZIER Confirmed By: Raudel José
== END 2024-06-17 14:40 ==
LOC: SUATTDRO → ED 06:42 → EDINP 06:42 → 2W 12:03